=== PATIENT | female | born 1985 | race Caucasian/White ===

== ENCOUNTER 2017-08-15 19:58 | Inpatient (IN) | payer BC ==
[2017-08-15 21:21] VITALS: BMI 25.4
[2017-08-15 23:08] VITALS: O2SAT 100
[2017-08-15 23:10] LABS: BASO % 0.3 % (0.0-2.0); EOS # 0.1 K/uL (0.0-0.7); EOS % 0.7 % (0.0-4.0); HEMOGLOBIN 8.9 g/dL (12.0-16.0); LYMPH # 1.9 K/uL (1.0-4.3); MEAN CELL VOLUME 77.6 fl (81.0-99.0); MEAN CORPUSCULAR HEMOGLOBIN 24.2 pg (27.0-31.0); MEAN CORPUSCULAR HGB CONC 31.2 g/dL (33.0-37.0); MEAN PLATELET VOLUME 9.5 fl (7.2-11.7); MONO # 0.9 K/uL (0.0-0.8); MONO % 11.4 % (0.0-10.0); NEUT % 63.6 % (50.0-75.0); RBC 3.68 Mil/uL (3.80-5.20); RED CELL DISTRIBUTION WIDTH 20.1 % (11.5-14.5); WHITE BLOOD COUNT 7.8 K/uL (4.8-10.8)
[2017-08-15] MEDS: Lactated Ringer's 1,000 ML IV SCH (23:41)
[2017-08-16] MEDS: Lactated Ringer's 1,000 ML IV SCH ×3 (07:30→09:09)
[2017-08-16] MEDS ORDERED: Bupivacaine HCl 0.25% PF (10 ml) Inj ONE (09:33)
[2017-08-16] MEDS ORDERED: Fentanyl/Bupivacaine HCl 250 ML EPI ONE ×3 (09:34→16:19)
[2017-08-16] MEDS: Oxytocin 30 units/LR 500ML 30 U/500 ML BAG IV SCH ×5 (11:00→12:36)
[2017-08-16] MEDS ORDERED: Lidocaine 2% Inj (20ml) ONE (12:35)
[2017-08-16] MEDS ORDERED: Oxycodone/Acetaminophen 5/325 mg Tab PO PRN ×4 (15:17→16:19)
[2017-08-16] MEDS ORDERED: Benzocaine/Menthol SPRAY TOP PRN ×2 (15:17→16:19)
[2017-08-17 08:59] LABS: HEMOGLOBIN 9.5 g/dL (12.0-16.0); MEAN CELL VOLUME 77.5 fl (81.0-99.0); MEAN CORPUSCULAR HEMOGLOBIN 24.4 pg (27.0-31.0); MEAN CORPUSCULAR HGB CONC 31.5 g/dL (33.0-37.0); RBC 3.9 Mil/uL (3.80-5.20); RED CELL DISTRIBUTION WIDTH 20.7 % (11.5-14.5); WHITE BLOOD COUNT 10.9 K/uL (4.8-10.8)
[2017-08-17] MEDS ORDERED: Multivitamin With Minerals Tab PO SCH (09:00)
[2017-08-17] MEDS: Multivitamin With Minerals Tab PO SCH (09:12)
--- NOTE | 2017-08-17 10:03 | OBDS ---
DELIVERY PERSONNEL Delivery Doctor: Keyur Mullen MD Environmental Services Floor Tech: Malathi Villa RN Anesthesiologist: Romario MATERNAL INFORMATION Delivery Anesthesia: Epidural Medications in Delivery: Pitocin Estimated Blood Loss (ml): 250 Placenta Cultured: No Maternal Complications: None RN Comments: Atruamatic of viable babygirl with lusty cry assigned 9/[address] Garry lara . Skin to skin initiated. aPatient and recoverying well. Provider Comments: Normal spontaneous vaginal delivery. Patient delivered viable infant female with Apgars of 9 and 9 at one and 5 minutes respectively. P lacenta delivered spontaneously. Lacerations repaired, as above. Uterus firm and appropriately hemost atic following delivery. No complications. Patient tolerated delivery and repair well. LABOR SUMMARY EDC: 08/09/2017 00:00 No. Babies in Womb: 1 Attempted: No Labor Anesthesia: None LABOR INFORMATION Reason for Induction: Postterm Onset of Labor: 08/16/2017 07:00 Complete Dilatation: 08/16/2017 12:25 Cervical Ripening Agents: Cervidil Other Ripening Agents: cervicil Oxytocin: N/A Group B Beta Strep: Negative Antibiotics # of Doses: 0 Steroids Given: None Reason Steroids Not Administered: Not Applicable MEMBRANES Membranes Rupture Method: Spontaneous Rupture of Membranes: 08/16/2017 12:29 Length of Rupture (hrs): 0.00 Amniotic Fluid Color: Clear Amniotic Fluid Amount: Moderate Amniotic Fluid Odor: Normal STAGES OF LABOR Stage 1 hrs: 5 Stage 1 min: 25 Stage 2 hrs: 0 Stage 2 min: 4 Stage 3 hrs: 0 Stage 3 min: 3 Total Time in Labor hrs: 5 Total Time in Labor min: 32 VAGINAL DELIVERY Laceration Extension: First Degree Laceration Type: Perineal; Periurethral Laceration Repair: Yes Laceration Repair Note: First-degree bilateral periurethral laceration. Area was infiltrated with 1% lidocaine. Lacerations repaired with 2. 0 repeat without complication. Patient tolerated well. Initial Vag Sponge Count: 5 Final Vag Sponge Count: 5 Initial Vag Sharps Count: 1 Final Vag Sharps Count: 1 Sponge Count Correct: Yes Sharps Count Correct: Yes BABY A INFORMATION Delivery Date/Time: 08/16/2017 12:29 Method of Delivery: Vaginal Born in Route : No : N/A Forceps: N/A Vacuum Extraction: N/A Shoulder Dystocia : No SHOULDER DYSTOCIA BABY A Infant Delivery Date/Time: 08/16/2017 12:29 PRESENTATION/POSITION BABY A Presentation: Cephalic Cephalic Presentation: Vertex Vertex Position: Left Occipital Anterior Breech Presentation: N/A PLACENTA INFORMATION BABY A Placenta Delivery Time : 08/16/2017 12:32 Placenta Method of Delivery: Spontaneous Placenta Status: Delivered SCORES BABY A Heart Rate 1 min: >100 bpm Resp Effort 1 min: Good Cry Reflex Irritability 1 min: Cough or Sneeze or Pulls Away Muscle Tone 1 min: Active Motion Color 1 min: Body [place], Extremities Blue SCORE 1 MIN: 9 Heart Rate 5 min: >100 bpm Resp Effort 5 min: Good Cry Reflex Irritability 5 min: Cough or Sneeze or Pulls Away Muscle Tone 5 min: Active Motion Color 5 min: Body [place], Extremities Blue SCORE 5 MIN: 9 INFANT INFORMATION BABY A Gestational Age at Delivery: 41.0 Gestational Status: Term Outcome : Liveborn Infant Condition : Stable Infant Sex: Female IDENTIFICATION/MEDS BABY A ID Band Number: [id number] ID Band Location: Right Leg; Right Arm WEIGHT/LENGTH BABY A Infant Birthweight (gms): 3000 Infant Weight (lb): 6 Infant Weight (oz): 10 Infant Length Inches: 20.00 Infant Length cms: 50.8 CORD INFORMATION BABY A No. Cord Vessels: 3 Nuchal Cord : N/A Infant Suction: Mouth; Nose ASSESSMENT BABY A Infant Complications: None Physical Findings at Delivery: Within Normal Limits Infant Respirations: Appears Normal Technology Sales Representative/ALS Called : No Infant Care By: Transferred To: Remains with Mother
--- NOTE | 2017-08-17 13:19 | CP.PCM.PN ---
Subjective - Date & Time of Evaluation Date of Evaluation: 08/17/17 Time of Evaluation: 13:17 - Subjective Subjective: 31 yo F s/p with epidural anesthesia. Currently ambulating around, denies headache, n/v or photophobia. Sensory and motor grossly intact. Epidural catheter removed, catheter tip intact witness by RN. No heme or paresthesia. Objective - Vital Signs/Intake and Output Vital Signs (last 24 hours): Temp Pulse Resp BP Pulse Ox 98.9 F 65 17 114/91 H 100 08/15/17 23:07 08/15/17 23:07 08/15/17 23:07 08/15/17 23:07 08/15/17 23:07 - Medications Medications: Current Medications Benzocaine/Menthol (Dermoplast) 1 sprays TOP PRN PRN PRN Reason: Perineal Discomfort Last Admin: 08/16/17 18:09 Dose: 1 sprays Oxytocin (Pitocin 20 Units In Lr) 1,000 mls @ 125 mls/hr IV .Q8H [facility] Ibuprofen (Motrin Tab) 600 mg PO Q6 PRN PRN Reason: Pain, Mild (1-3) Last Admin: 08/17/17 09:11 Dose: 600 mg Multivitamins/Minerals (Therapeutic-M Tab) 1 tab PO DAILY LEEROY Last Admin: 08/17/17 09:12 Dose: 1 tab Oxycodone/Acetaminophen (Percocet 5/325 Mg Tab) 1 tab PO Q4 PRN PRN Reason: Pain, moderate (4-7) Stop: 08/19/17 15:18 Oxycodone/Acetaminophen (Percocet 5/325 Mg Tab) 2 tab PO Q4 PRN PRN Reason: Pain, severe (8-10) Stop: 08/19/17 15:18 - Labs Labs: 08/17/17 08:51
--- NOTE | 2017-08-17 16:32 | OBPPN ---
Datetime: 08/17/2017 16:28 PP Pain Prov: Within normal limits PP Nausea Prov: Denies PP Flatus Prov: Yes PP Breasts Prov: Normal PP Heart Prov: Normal PP Lungs Prov: Normal PP Abdomen/Uterus Prov: Normal PP Extremities Prov: Normal PP Progress Prov: Normal PP Comments Phys Exam Prov: hgb 9.5 PP Impression Prov: Normal progression PP Plan Prov: Continue present management PP Progress Note Prov: s: tolerating reg diet; +cramping with ; denies perineal pain i: s/p doing well p: routine pp care. IP PP Procedures: None Vital Signs Provider PP: Reviewed; Within Normal Limits
[2017-08-18] MEDS: Multivitamin With Minerals Tab PO SCH (08:58)
--- NOTE | 2017-08-18 10:54 | OBPPN ---
Datetime: 08/18/2017 10:51 PP Pain Prov: Within normal limits PP Nausea Prov: Denies PP Flatus Prov: Yes PP BM Prov: Yes PP Breasts Prov: Normal PP Heart Prov: Normal PP Lungs Prov: Normal PP Abdomen/Uterus Prov: Normal PP Lochia Prov: Normal PP Vulva/Perineum Prov: Normal PP CVA Tenderness Prov: Normal PP Extremities Prov: Normal PP Comments Phys Exam Prov: Abdomen soft, nontender, nondistended Uterus firm, below umbilicus No deep calf tenderness bilaterally PP Impression Prov: Normal progression PP Plan Prov: Discharge PP Progress Note Prov: day #2 status post normal spontaneous vaginal delivery, patient re covering well Discharge patient home with instructions Follow-up office in 6 weeks for visit IP PP Procedures: None Vital Signs Provider PP: Reviewed; Within Normal Limits
--- NOTE | 2017-08-18 10:54 | OBDCSUM ---
Datetime: 08/18/2017 10:52 Discharged to, Provider: Home Follow up at, Provider: [facility] Disch Instr Activity: Normal activity Disch Instr Diet: Regular Discharge Instructions, Provider: Routine instructions given Discharge Diagnosis, Provider: Term Delivered Discharge Time: 08/18/2017 10:53 Follow up in weeks, Provider: 6 weeks Disch Referrals: None Contraception discussed, Prov: Yes Disch Activity Restrictions: No lifting; Nothing in vagina - [place], tampons, douche
[2017-08-18 17:47] VITALS: BP 119/77; PULSE 69; RESP 18; TEMP 98.3
== END 2017-08-18 12:10 | disposition home or self-care (01) | DRG 775 ==
LOC: H.EROB2 19:58 → H.L&D 21:54 → H.OB/GYN 08-16 16:13
PROVIDERS: ADMIT Obstetrics & Gynecology Gynecology; ATTEND Obstetrics & Gynecology Gynecology
PROC: 10E0XZZ Delivery of Products of Conception, External Approach (ICD-10-PCS; principal; 2017-08-15)
PROC: 0HQ9XZZ Repair Perineum Skin, External Approach (ICD-10-PCS; 2017-08-15)
PROC: 4A1HXCZ Monitoring of Products of Conception, Cardiac Rate, External Approach (ICD-10-PCS; 2017-08-15)
DX: O48.0 Post-term pregnancy (principal); Z37.0 Single live birth; Z3A.41 41 weeks gestation of pregnancy; O70.0 First degree perineal laceration during delivery